=== PATIENT | female | born 1980 | race Caucasian/White ===

== ENCOUNTER 2019-06-17 03:12 | Emergency (ER) | payer OTHER ==
[~2019-06-17] VITALS: Ht 160 cm; Wt 84.8 kg
[2019-06-17 03:20] VITALS: BP 111/62
--- NOTE | 2019-06-17 03:20 | NUR ---
TO BED # 11 AMBULATORY
[2019-06-17 03:25] VITALS: BP 111/62
--- NOTE | 2019-06-17 03:25 | NUR ---
38 Y/O F PRESENTS TO ED WITH C/O RT UPPER BUTTOCKS PAIN X1 WEEK. 10/10 SHARP PAIN RADIATING TO LOWER BACK . PT REPORTS BEING SEEN AT URGENT CARE X1 WEEK AGO AND GIVEN RX OF MOTRIN FOR A "PULLED MUSCLE." PT SELF MEDICATED WITH TRAMADOL X3 HOURS [employer] AND MOTRIN X2 HOURS [employer] WITH NO RELIEF OF SYMPTOMS. PT UNABLE TO SLEEP DUE TO INCREASE IN PAIN. PT DENIES FALL OR INJURY. BEDRAIL X1 UP. WILL CONTINUE TO MONITOR.
--- NOTE | 2019-06-17 03:59 | NUR ---
Dr. Guerrero examining patient.
[2019-06-17] MEDS ORDERED: cefTRIAXone 1,000 MG in LIDOCAINE MPF 1% 2.1 ML IM ONE (04:10)
[2019-06-17] MEDS ORDERED: KETOROLAC 60 MG/2 ML VIAL IM ONE (04:10)
[2019-06-17] MEDS ORDERED: cefTRIAXone 1,000 MG VIAL ONE (04:12)
[2019-06-17 04:13] LABS: APPEARANCE,URINE CLEAR (CLEAR); BILIRUBIN,URINE NEGATIVE (NEGATIVE); BLOOD, URINE NEGATIVE (NEGATIVE); COLOR,URINE YELLOW (YELLOW); LEUKOCYTE ESTERASE ,URINE TRACE (NEGATIVE); NITRITE, URINE NEGATIVE (NEGATIVE); PH,URINE 6.5 (5.0-9.0); UGLUCOSE NEGATIVE (NEGATIVE)
[2019-06-17] MEDS ORDERED: LIDOCAINE MPF 1% 5 ML ONE (04:13)
[2019-06-17 04:24] LABS: RBC,URINE 0-5 /HPF (0-5)
--- NOTE | 2019-06-17 04:51 | NUR ---
Patient discharged with v/s stable. Written and verbal after care instructions given and explained BY DR. PARRA. Patient alert, oriented and verbalized understanding of instructions. Ambulatory with steady gait. All questions addressed prior to discharge. ID band removed. Patient advised to follow up with PMD. Rx of PYRIDUM AND MACROBID given. Patient educated on indication of medication including possible reaction and side effects. Opportunity to ask questions provided and answered.
== END 2019-06-17 04:51 | disposition home or self-care (01) ==
LOC: MED 03:12
DX: J06.9 Acute upper respiratory infection, unspecified (principal); Z90.49 Acquired absence of other specified parts of digestive tract
CPT/HCPCS: 81001; 81025; 87086; 96372; 99283; J0696; J1885; J2001